=== PATIENT | male | born 1950 | race Caucasian/White ===

== ENCOUNTER 2016-04-28 09:43 | Emergency (ER) | payer OTHER ==
[~2016-04-28] VITALS: Ht 193 cm; Wt 90.7 kg
--- NOTE | 2016-04-28 09:55 | ED GENERAL ADULT ---
History of Present Illness General Chief Complaint: General Adult Stated Complaint: BIBA FOR HIGH BS Source: patient Exam Limitations: no limitations Vital Signs & Intake/Output Vital Signs & Intake/Output Vital Signs Date Time Temp Pulse Resp B/P Pulse O2 O2 Flow FiO2 Ox Delivery Rate 04/28 1400 97.2 84 110/66 04/28 1328 97.2 73 15 100/62 100 Room Air Room Air 04/28 1315 97.0 80 20 100/53 98 Room Air 04/28 1001 Room Air Room Air 04/28 0946 97.7 83 15 127/69 97 Room Air Room Air Allergies Coded Allergies: No Known Allergies (04/28/16) Reconcile Medications Duloxetine Hydrochloride (Cymbalta) 30 MG CAPSULE. 1 CAP PO DAILY DEPRESSION Glipizide 5 MG TABLET 1 TAB PO BID DIABETES Pioglitazone HCl (Actos) 30 MG TABLET 1 TAB PO DAILY DIABETES Simvastatin (Simvastatin*) 10 MG TABLET 1 TAB PO QPM HIGH CHOLESTEROL Triage Note: PT BIBA FROM HOME, REFERRED TO [facility] BY DR. GROVES FOR HIGH BLOOD SUGAR. PT SEES DR. GROVES FOR CLL WHICH PT HAS HAD FOR A COUPLE OF YEARS, NOT RECEIVING TREATMENT YET. PT WENT TO [facility] YESTERDAY FOR ROUTINE BLOOD WORK FOR HIS CLL AND TODAY DR. GROVES CALLED HIM TO INFORM HIM OF HIS BLOOD SUGAR OF 600 AND WBC >200,000. PT REPORTS HE USED TO TAKE INSULIN BUT HASN'T BEEN TAKING IT BECAUSE HIS INSULIN . PT ARRIVES A/O X 4, BLOOD SUGAR 281 ON ARRIVAL. Triage Nurses Notes Reviewed? yes Onset: Gradual Duration: day(s): (1) Timing: recent history Injury Environment: home Severity: moderate No Modifying Factors: none HPI: Patient is a 65-year-old male with history of diabetes, hyperlipidemia presenting to the emergency department chief complaint of high blood glucose level. Patient reports that he went to his oncologist office yesterday for routine blood work and they called him today saying he has blood glucose levels greater than 600 yesterday and he is to come to the emergency department for evaluation. Patient reports that he stopped taking his diabetic medications for the past 2-3 months because he's been "confused". Patient reports that he feels intermittently confused at this time. He feels malaise. Positive urinary frequency but no dysuria. Denies hematuria. Denies nausea or vomiting fevers or chills chest pain or shortness of breath. No sick contacts or recent travel. Patient also reports history of CLL for which she is starting treatment soon. (BANG VANESSA) Past History Travel History Traveled to [place] past 21 day No Medical History Any Pertinent Medical History? 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 No (BANG VAENSSA) Review of Systems Review of Systems Constitutional: Reports: malaise. Comments Review of systems: See HPI, All other systems negative. Constitutional, no chills fever or weight loss HEENT: No visual changes no sore throat no congestion Cardiovascular: No chest pain ,palpitation , orthopnea or ankle swelling Skin, no jaundice no rashes Respiratory: No dyspnea cough sputum or hemoptysis GI: No nausea no vomiting : No dysuria No hematuria Muscle skeletal: no back pain, no neck pain, Neurologic: No numbness no HEADACHE Psych: No INCREASED stress anxiety or depression,. Heme/endocrine: No bruising no bleeding no polyuria or polydipsia Immunology: No splenectomy or history of AIDS (BANG VANESSA) Physical Exam Physical Exam General Appearance: well developed/nourished, no apparent distress, alert, awake , comfortable Comments: Well-developed well-nourished person in no acute distress HEENT: Normal EENT exam, extraocular motion intact, no nystagmus. Pupils equally round and reactive to light and accommodation. Nose is atraumatic. External auditory canal and Tympanic membranes clear. Pharynx normal. No swelling or edema. Neck: Supple, no lymphadenopathy, normal range of motion without pain or tenderness Back: Nontender, no CVA tenderness. Full range of motion Cardiovascular: Regular rate and rhythms no murmurs rubs or gallops, normal JVP Respiratory: Chest nontender. No respiratory distress.breath sounds clear to auscultation bilaterally Abdomen: Soft, nontender nondistended, no appreciable organomegaly. Normal bowel sounds. No ascites Extremity: No edema, no calf tenderness to palpation, normal and equal pulses. Muscular strength is 5 out of 5 in all extremities.Strength is equal and symmetric bilaterally IN UPPER AND LOWER EXT. Neuro: Alert oriented x3, motor sensory normal, cranial nerves II through XII grossly intact. Cerebellar testing is unremarkable. Skin: No appreciable rash on exposed skin, skin is warm and dry. Psych: Mood and affect is normal, memory and judgment is normal. Core Measures ACS in differential dx? No CVA/TIA Diagnosis: No Severe Sepsis Present: No Septic Shock Present: No (NEHEMIAH BRAVO,BANG) Progress Differential Diagnoses I considered the following diagnoses in my evaluation of the patient: Pneumonia , dehydration, electrolyte body, DKA, medication noncompliance, UTI Plan of Care: Orders Procedure Date/time Status Consistent Carbohydrate 1 04/28 L Active LACTIC ACID 04/28 1254 Active ARTERIAL BLOOD GAS (GEN) 04/28 0954 Active URINALYSIS 04/28 0954 Complete LACTIC ACID 04/28 0954 Complete GLYCOSYLATED HGB 04/28 0954 Active COMPREHENSIVE METABOLIC PANEL 04/28 0954 Complete CBC WITHOUT DIFFERENTIAL 04/28 0954 Complete ACETONE 04/28 0954 Complete EKG 04/28 0954 Active Laboratory Tests 04/28/16 1030: pH 7.43, pCO2 39, pO2 60 L, HCO3 26, ABG O2 Sat (Measured) 84.0 L, Carboxyhemoglobin 7.4 *H, O2 Concentration % ROOM AIR, Phlebotomy Draw Site LEFT RADIAL 04/28/16 1025: Urine Color YEL, Urine Clarity CLEAR, Urine pH 7.0, Ur Specific [place] 1.010, Urine Protein NEG, Urine Ketones NEG, Urine Nitrite NEG, Urine Bilirubin NEG, Urine Urobilinogen 0.2, Ur Leukocyte Esterase NEG, Ur Microscopic EXAM NOT REQUIRED, Urine Hemoglobin NEG, Urine Glucose >=1000 H 04/28/16 1008: Anion Gap 6, Estimated GFR > 60, BUN/Creatinine Ratio 16.0, Glucose 329 H, Lactic Acid 0.6 L, Calcium 8.8, Total Bilirubin 0.5, AST 23, ALT 29, Alkaline Phosphatase 164 H, Total Protein 5.9 L, Albumin 3.8, Globulin 2.1, Albumin/ Globulin Ratio 1.8, CBC w Diff MAN DIFF ORDERED, RBC 3.76 L, MCV 86.8, MCH 26.0 L, RDW 18.9 H, MPV 7.8, Gran % 5.5 L, Lymphocytes % 92.7 H, Monocytes % 0.4 L, Eosinophils % 0.9, Basophils % 0.5, Absolute Granulocytes 15.6 H, Segmented Neutrophils 4 L, Absolute Lymphocytes 265.5 H, Lymphocytes 91 H, Absolute Monocytes 1.3 H, Eosinophils 2, Absolute Eosinophils 2.7, Absolute Basophils 1.5, Blast Cells 3 H, Platelet Estimate DECREASED, Hypochromic-Microcytic 2+, Anisocytosis 1+, PUBS MCHC 29.9 L, Acetone Level NEGATIVE 04/28/16 0954: Hemoglobin A1c Pending Diagnostic Imaging: Viewed by Me: Radiology Read. Discussed w/RAD: Radiology Read. Radiology Impression: ATIENT: KIRSTIN SEXTON PRESENT AGE: 65 PATIENT ACCOUNT NO: [id number] : 51 LOCATION: [facility] ORDERING PHYSICIAN: BANG BRAVO SERVICE DATE: 04/28/16 EXAM TYPE: RAD - XRY-PORTABLE CHEST XRAY EXAMINATION: XR PORTABLE CHEST CLINICAL INFORMATION: Confusion COMPARISON: CT 02/21/2015 TECHNIQUE: Portable view of the chest was obtained. FINDINGS: Lung volumes are symmetric. No focal consolidation is seen. No evidence of pneumothorax, pleural effusion, or pulmonary edema. The cardiomediastinal contour is unremarkable. No acute osseous findings are seen. IMPRESSION: No acute cardiopulmonary findings. DICTATED BY: KATHIA HADLEY MD DATE/TIME DICTATED:04/28/161039 SAUSAGE LINKER:SILVINO DATE/TIME TRANSCRIBED:04/28/161039 CONFIDENTIAL, DO NOT COPY WITHOUT APPROPRIATE AUTHORIZATION. <Electronically signed in Other Vendor System> SIGNED BY: KATHIA HADLEY MD 04/28/161043 Initial ED EKG: SINUS AT 78 BPM Comments: 04/28/2016 10:06:32 AM on arrival patient noted to stress, blood glucose level via fingerstick is 281. Patient reports that he's been intermittently confused over the past, months and therefore he stopped taking his diabetic medication. Denies any pain. No nausea vomiting fevers or chills chest pain or shortness of breath. Positive malaise. 04/28/2016 12:07:15 PM patient feeling improved after IV fluids. First liter still running in. White blood cell count is 280. Patient reports that it was over 200 yesterday. Patient informed of all lab work results. Glucose level is improving. Patient started back on glipizide, Actos, simvastatin and Cymbalta. Patient unsure what type of insulin he was on. He'll follow-up with his primary care physician in next couple days. (BANG VANESSA) Departure Departure Time of Disposition: 1336 Disposition: HOME OR SELF CARE Condition: Stable Clinical Impression Primary Impression: Hyperglycemia Secondary Impressions: CLL (chronic lymphocytic leukemia) Leukocytosis Qualifiers: Leukocytosis type: unspecified Qualified Code: D72.829 - Elevated white blood cell count, unspecified Referrals: ISAÍAS WICK MD Additional Instructions: Follow-up with call to make an appointment. Also follow-up with her primary care physician as scheduled for May 05. Take all medications as prescribed. Return for worsening symptoms or concerns Departure Forms: Customer Survey General Discharge Information Prescriptions: Current Visit Scripts Pioglitazone HCl (Actos) 1 TAB PO DAILY #30 TAB Simvastatin (Simvastatin*) 1 TAB PO QPM #30 TAB Duloxetine Hydrochloride (Cymbalta) 1 CAP PO DAILY #14 CAP Glipizide 1 TAB PO BID #30 TAB (BANG VANESSA) PA/MOTOR VEHICLE ASSEMBLY SUPERVISOR Co-Sign Statement Statement: ED Attending supervision documentation- x I saw and evaluated the patient. I have also reviewed all the pertinent lab results and diagnostic results. I agree with the findings and the plan of care as documented in the PA's/MOTOR VEHICLE ASSEMBLY SUPERVISOR's documentation. [] I have reviewed the ED Record and agree with the PA's/MOTOR VEHICLE ASSEMBLY SUPERVISOR's documentation. [] Additions or exceptions (if any) to the PAs/MOTOR VEHICLE ASSEMBLY SUPERVISOR's note and plan are summarized below: [] (ALMAS CARNEY,GLENN) Critical Care Note Critical Care Note Critical Care Time: non-applicable (BANG VANESSA)
[2016-04-28 10:28] LABS: ABSOLUTE BASOPHIL COUNT 1.5 /CUMM (0.0-0.2); ABSOLUTE EOSINOPHIL COUNT 2.7 /CUMM (0.0-0.7); ABSOLUTE GRANULOCYTE CT 15.6 /CUMM (1.4-6.5); ABSOLUTE LYMPH COUNT 265.5 /CUMM (1.2-3.4); ABSOLUTE MONOCYTE COUNT 1.3 /CUMM (0.10-0.60); BASOPHIL % 0.5 % (0.0-2.0); EOSINOPHIL % 0.9 % (0-5); GRANULOCYTE % 5.5 % (42.2-75.2); HEMATOCRIT 32.7 % (42-52); MEAN CORPUSCULAR HGB CONC 29.9 G/DL (33.0-37.0); MEAN CORPUSCULAR VOLUME 86.8 FL (80.0-94.0); MEAN PLATELET VOLUME 7.8 FL (7.4-10.4); PLATELET COUNT 91 /CUMM (130-400); RBC DISTRIBUTION WIDTH 18.9 % (11.5-14.5); RED BLOOD CELL CT 3.76 /CUMM (4.70-6.10)
[2016-04-28 10:35] LABS: WHITE BLOOD CELL COUNT 286.4 /CUMM (4.8-10.8)
--- NOTE | 2016-04-28 10:44 | RADIOLOGY REPORT ---
EXAMINATION: XR PORTABLE CHEST CLINICAL INFORMATION: Confusion COMPARISON: CT 02/21/2015 TECHNIQUE: Portable view of the chest was obtained. FINDINGS: Lung volumes are symmetric. No focal consolidation is seen. No evidence of pneumothorax, pleural effusion, or pulmonary edema. The cardiomediastinal contour is unremarkable. No acute osseous findings are seen. IMPRESSION: No acute cardiopulmonary findings.
[2016-04-28] MEDS ORDERED: ACTOS30 M1 PO (13:46)
[2016-04-28] MEDS ORDERED: CYMBALTA30 M1 PO (13:46)
[2016-04-28] MEDS ORDERED: SIMVASTATIN10 M1 PO (13:46)
[2016-04-28] MEDS ORDERED: GLIPIZIDE5 M2 PO (13:46)
[2016-04-28 14:00] VITALS: BP 110/66
== END 2016-04-28 14:32 ==
LOC: ERH 09:43
PROVIDERS: Physician Assistant
DX: E11.65 Type 2 diabetes mellitus with hyperglycemia (principal); C91.10 Chronic lymphocytic leukemia of B-cell type not having achieved remission; D72.829 Elevated white blood cell count, unspecified; I10 Essential (primary) hypertension; Z72.0 Tobacco use; Z79.84 Long term (current) use of oral hypoglycemic drugs
CPT/HCPCS: 81003; 93005; 93010; 96360; 96361